=== PATIENT | male | born 1995 | race Caucasian/White ===

== ENCOUNTER 2018-10-24 20:08 | Emergency (ER) | payer MEDICAID, OTHER ==
[~2018-10-24] VITALS: Ht 170.2 cm; Wt 50.0 kg
[~2018-10-24 20:08] MED LIST: AZIT250T12 PO; DIPH-423 PO; PRED50TA PO; RANI-366 PO
[2018-10-24] MEDS ORDERED: methylPREDNISolone sod succ 125mg/2ml vial IV ONE (21:05)
[2018-10-24] MEDS ORDERED: benzonatate 100mg capsule PO ONE (21:05)
[2018-10-24] MEDS ORDERED: diphenhydrAMINE 50 mg/ml inj IM ONE (21:05)
[2018-10-24] MEDS ORDERED: ipratropium/albuterol 3ml nebule NEB ONE (21:05)
[2018-10-24] MEDS ORDERED: normal saline 1000ML IV soln IVB ONE ×2 (21:05→22:35)
[2018-10-24] MEDS ORDERED: ondansetron/PF 4mg/2ml inj IV ONE (21:10)
[2018-10-24] MEDS ORDERED: diphenhydrAMINE 50 mg/ml inj IV ONE (21:20)
[2018-10-24 21:27] LABS: ALANINE AMINOTRANSFERASE 28 U/L (12-78); ALBUMIN 4.7 G/DL (3.4-5.0); ALBUMIN/GLOBULIN RATIO 1.3 (1.1-1.5); ALKALINE PHOSPHATASE 67 IU/L (46-116); ANION GAP 12 (8-16); ASPARTATE AMINO TRANSFERASE 26 U/L (10-37); BLOOD UREA NITROGEN 9 MG/DL (7-18); BUN/CREATININE RATIO 9.1 (5.4-32.0); CALCIUM 9.6 MG/DL (8.5-10.1); CHLORIDE 102 MMOL/L (99-107); CREATININE 0.99 MG/DL (0.60-1.10); GLUCOSE 124 MG/DL (70-104); POTASSIUM 3.7 MMOL/L (3.5-5.1); SODIUM 141 MMOL/L (135-145); TOTAL CARBON DIOXIDE 27.5 MMOL/L (24-32); TOTAL PROTEIN 8.4 G/DL (6.4-8.2); eGFR > 90 ML/MIN
[2018-10-24 21:28] LABS: BASOPHILS # (AUTO) 0.1 X10'3 (0-0.2); BASOPHILS % (AUTO) 0.3 % (0-1); EOSINOPHILS % (AUTO) 0.1 % (0-6); HEMATOCRIT 47.3 % (42.0-52.0); HEMOGLOBIN 16.2 g/dl (14.0-17.9); LYMPHOCYTES % (AUTO) 4.4 % (21-51); MEAN CORPUSCULAR HEMOGLOBIN 30.9 PG (27.0-31.0); MEAN CORPUSCULAR HGB CONC 34.2 g/dL (33.0-36.5); MEAN CORPUSCULAR VOLUME 90.1 FL (78-98); MEAN PLATELET VOLUME 8.5 FL (7.4-10.4); MONOCYTES # (AUTO) 1.6 X10'3 (0-0.9); MONOCYTES % (AUTO) 7.1 % (2-12); NEUTROPHILS # (AUTO) 20.4 X10'3 (1.8-7.7); NEUTROPHILS % (AUTO) 88.1 % (42-75); PLATELET COUNT 379 X10'3 (140-440); RED BLOOD COUNT 5.25 X10'6 (4.70-6.10); RED CELL DISTRIBUTION WIDTH 13.1 % (11.5-14.5); WHITE BLOOD COUNT 23.1 X10'3 (4.5-11.0)
[2018-10-24 21:48] LABS: PLATELET ESTIMATE NORMAL; TOTAL CELLS COUNTED 100
--- NOTE | 2018-10-24 22:17 | NUR ---
patient states that he "feel much better". Lungs Cl, no wheeze, still has a dry cough, gave him some ice water
[2018-10-24] MEDS ORDERED: ALBU6.7H INH (22:37)
[2018-10-24] MEDS ORDERED: ONDA4TAB6 PO (22:37)
[2018-10-24] MEDS ORDERED: PRED20TA PO (22:37)
[2018-10-24 22:48] VITALS: BP 116/56
== END 2018-10-24 23:13 | disposition home or self-care (01) ==
LOC: ER 20:09
DX: J45.909 Unspecified asthma, uncomplicated (principal); E86.0 Dehydration; J06.9 Acute upper respiratory infection, unspecified; R11.2 Nausea with vomiting, unspecified; R19.7 Diarrhea, unspecified; F17.200 Nicotine dependence, unspecified, uncomplicated; Z79.899 Other long term (current) drug therapy
CPT/HCPCS: 36415; 80053; 85025; 94640; 94760; 96361; 96374; 96375; 99283; J1200; J2405; J2930; J7030

== ENCOUNTER 2019-01-21 15:18 | Emergency (ER) | payer MEDICAID, OTHER ==
[~2019-01-21] VITALS: Ht 167.6 cm; Wt 56.4 kg
[~2019-01-21 15:18] MED LIST changes: +ALBU6.7H9 INH; +ONDA4TAB6 PO
[2019-01-21 15:22] VITALS: BP 112/63
[2019-01-21] MEDS ORDERED: PENI500T2 PO (16:21)
== END 2019-01-21 16:29 | disposition home or self-care (01) ==
LOC: ER 15:18
DX: K08.89 Other specified disorders of teeth and supporting structures (principal); J45.909 Unspecified asthma, uncomplicated; Z79.899 Other long term (current) drug therapy
CPT/HCPCS: 99283

== ENCOUNTER 2020-04-21 16:54 | Emergency (ER) | payer MEDICAID ==
[~2020-04-21] VITALS: Ht 170.2 cm; Wt 63.6 kg
[2020-04-21 16:57] VITALS: BP 120/80
[2020-04-21] MEDS ORDERED: IBUP-1984 PO (18:21)
[2020-04-21] MEDS ORDERED: PENI500T2 PO (18:21)
== END 2020-04-21 18:27 | disposition home or self-care (01) ==
LOC: ER 16:54
DX: K04.7 Periapical abscess without sinus (principal); J45.909 Unspecified asthma, uncomplicated; Z79.2 Long term (current) use of antibiotics; Z79.899 Other long term (current) drug therapy
CPT/HCPCS: 99283

== ENCOUNTER 2021-05-20 22:41 | Emergency (ER) | payer MEDICAID, OTHER ==
[~2021-05-20] VITALS: Ht 170.2 cm; Wt 65.8 kg
[2021-05-20] MEDS ORDERED: iohexol 300mg/ml 100ml inj. ONE (23:03)
--- NOTE | 2021-05-20 23:15 | NUR ---
This RN with patient in CT for rodriguez scans. patient complains of elft facial pain and FUENTES 8/10. denies any other pain
[2021-05-20 23:44] LABS: BASOPHILS % (AUTO) 0.3 % (0-1); EOSINOPHILS # (AUTO) 0.1 X10'3 (0-0.9); EOSINOPHILS % (AUTO) 1.1 % (0-6); HEMATOCRIT 45.3 % (42.0-52.0); HEMOGLOBIN 15.2 g/dl (14.0-17.9); LYMPHOCYTES # (AUTO) 2.4 X10'3 (1.1-4.8); LYMPHOCYTES % (AUTO) 19.8 % (21-51); MEAN CORPUSCULAR HEMOGLOBIN 30.6 PG (27.0-31.0); MEAN CORPUSCULAR HGB CONC 33.6 g/dL (33.0-36.5); MEAN CORPUSCULAR VOLUME 90.8 FL (78-98); MONOCYTES # (AUTO) 0.9 X10'3 (0-0.9); MONOCYTES % (AUTO) 7.8 % (2-12); NEUTROPHILS # (AUTO) 8.7 X10'3 (1.8-7.7); PLATELET COUNT 345 X10'3 (140-440); RED BLOOD COUNT 4.99 X10'6 (4.70-6.10); WHITE BLOOD COUNT 12.2 X10'3 (4.5-11.0)
[2021-05-20 23:54] LABS: ALBUMIN 3.4 G/DL (3.4-5.0); ANION GAP 10 (8-16); BLOOD UREA NITROGEN 7 MG/DL (7-18); BUN/CREATININE RATIO 9.7 (5.4-32.0); CALCIUM 8.2 MG/DL (8.5-10.1); CHLORIDE 102 MMOL/L (99-107); CREATININE 0.72 MG/DL (0.60-1.10); GLUCOSE 96 MG/DL (70-104); POTASSIUM 3.6 MMOL/L (3.5-5.1); SODIUM 139 MMOL/L (135-145); eGFR > 90 ML/MIN
[2021-05-20 23:57] LABS: APTT 28 SECONDS (22-32)
[2021-05-21] MEDS: CefTRIAXone/D5W-Rocephin 1gm 50 ML IV ONE (00:01)
--- NOTE | 2021-05-21 00:06 | NUR ---
PATIENT IS RESTING COMFORTABLY. THIS RN NOTES THE PATIENT ARRIVED TO ED WITHOUT C-COLLAR ON AND THIS RN PLACED ONE IMMEDIATELY PER MD ORDER.
[2021-05-21] MEDS: ondansetron/PF 4mg/2ml inj IV ONE (00:27)
[2021-05-21] MEDS: morphine 4 MG/ML inj SYRINge IV ONE (00:27)
--- NOTE | 2021-05-21 00:30 | NUR ---
MD coello to remove c-collar
[2021-05-21 00:51] VITALS: BP 105/58
--- NOTE | 2021-05-21 01:07 | NUR ---
report to medics. report to omero at [facility] - patient left pwd krishnamurthy aox2
== END 2021-05-21 01:09 | disposition short-term general hospital (02) ==
LOC: ER 22:41
DX: S06.5X9A Traumatic subdural hemorrhage with loss of consciousness of unspecified duration, initial encounter (principal); S02.31XA Fracture of orbital floor, right side, initial encounter for closed fracture; S02.19XA Other fracture of base of skull, initial encounter for closed fracture; S05.12XA Contusion of eyeball and orbital tissues, left eye, initial encounter; J45.909 Unspecified asthma, uncomplicated; G93.89 Other specified disorders of brain; Z20.822 Contact with and (suspected) exposure to COVID-19; Z87.01 Personal history of pneumonia (recurrent); Z72.89 Other problems related to lifestyle; Z79.899 Other long term (current) drug therapy; Z79.2 Long term (current) use of antibiotics; V89.2XXA Person injured in unspecified motor-vehicle accident, traffic, initial encounter; Y93.89 Activity, other specified; Y92.89 Other specified places as the place of occurrence of the external cause; Y99.8 Other external cause status
CPT/HCPCS: 36415; 70450; 70486; 71260; 72125; 72128; 72131; 74177; 80048; 85025; 85610; 85730; 87635; 96374; 96375; 99285; C9803; J0696; J2270; J2405; Q9967

== ENCOUNTER 2024-09-11 08:27 | Emergency (ER) | payer MEDICAID, OTHER ==
[~2024-09-11] VITALS: Ht 170.2 cm; Wt 54.5 kg
[~2024-09-11 08:27] MED LIST changes: +ALBU6.7H14 INH; -ALBU6.7H9 INH
[2024-09-11 08:39] VITALS: BP 115/68; PULSE 80; RESP 18; TEMP 97.8; O2SAT 98
[2024-09-11] MEDS ORDERED: SULF1TAB49 PO (09:36)
[2024-09-11] MEDS: sulfamethoxazole/trimethoprim DS (800/160mg) tablet PO ONE (10:01)
== END 2024-09-11 10:10 | disposition home or self-care (01) ==
LOC: ER 08:27
DX: L02.423 Furuncle of right upper limb (principal); L03.011 Cellulitis of right finger; J45.909 Unspecified asthma, uncomplicated; F17.200 Nicotine dependence, unspecified, uncomplicated; F41.9 Anxiety disorder, unspecified; F32.A Depression, unspecified; Z79.899 Other long term (current) drug therapy
CPT/HCPCS: 10060; 99283

== ENCOUNTER 2024-11-22 14:07 | Emergency (ER) | payer MEDICAID ==
[~2024-11-22] VITALS: Ht 170.2 cm; Wt 59.1 kg
[2024-11-22 14:09] VITALS: BP 127/89; PULSE 77; O2SAT 99
[2024-11-22] MEDS ORDERED: IBUP-1986 PO (15:35)
--- NOTE | 2024-11-22 15:35 | Physician Documentation ---
History of Present Illness ~ Chief Complaint: Facial Pain Stated Complaint: SINUS PAIN Time Seen by MD: 15:08 Primary Medical Doctor: None HPI This is a 29-year-old male who presents with six months of right-sided maxillary and temporal pain, patient reports no significant change recently though pain has been progressively getting worse. Patient reports no fever, nasal discharg e, congestion, or sinus pressure. Patient reports that he had a traumatic injury to the area approximately three years prior and has been having issues with the area ever since. Patient reports no other acute symptoms or concerns. Tetanus Within 5 Years: Yes Medication Reconciliation Allergies: Coded Allergies: No Known Allergies (Unverified , 03/30/17) Scheduled Albuterol Sulfate (Proventil Hfa), 2 PUFFS INH Q6H Azithromycin (Azithromycin), 2 TAB PO DAILY Diphenhydramine Hcl (Benadryl), 25 MG PO TID Ibuprofen (Ibuprofen), 1 TAB PO Q8H Ondansetron Hcl (Zofran), 1 TAB PO Q6H Prednisone (Prednisone), 1 TAB PO DAILY Ranitidine Hcl (Zantac), 150 MG PO DAILY Past Medical History Past Medical History: Asthma, Pneumonia, Anxiety, Depression Past Surgical History: no surgical history Alcohol Use: Occasionally Drug Use: none Lives In: Home Review of Systems ROS Right-sided facial pain as stated above in the HPI, otherwise all systems are reviewed and negative. Physical Exam Vital Signs: Temperature: 97.9, Source: Temporal, Heart Rate: 77, Respiratory Rate: 18, BP: 127/89, Pulse Oximetry: 99, Weight: 59.090 Oxygen Flow Rate: 0 Physical Exam VITALS: Reviewed and as above. GENERAL: Alert, nontoxic appearing, no apparent distress. HEENT: Mild temporal and TMJ tenderness, PERRLA, EOMI, no facial swelling, no facial ecchymosis, no facial erythema, nasal turbinates non swollen and nonerythematous, no nasal discharge, no sinus pain with percussion or palpation, no trismus, no dental erythema or swelling. RESPIRATORY: No increased work of breathing, no respiratory distress, speaking in full clear sentences Progress Results/Orders Results/Orders Completed Orders - WILL TURNER [employer] Ketorolac Trometh 15mg/Ml Vial (Toradol (11/22/24 15:40) Acetaminophen 325mg Tablet (Tylenol Tabl (11/22/24 15:40) Medications Received in ER Medications (Trade) Dose Ordered Sig/Clare Route PRN Reason Start Time Stop Time Status Last Admin Dose Admin (Toradol injection) 15 mg ONCE ONCE IM 11/22/24 15:40 11/22/24 15:41 DC 11/22/24 15:53 15 MG (Tylenol tablet) 650 mg ONCE ONCE PO 11/22/24 15:40 11/22/24 15:41 DC 11/22/24 15:52 650 MG Vital Signs 11/22/24 11/22/24 11/22/24 14:09 15:53 16:06 Temp 97.9 97.9 Pulse 77 Resp 18 16 B/P (MAP) 127/89 Pulse Ox 99 O2 Flow Rate 0 Medical Decision Making Findings This is a 29-year-old male presented with six months of right-sided facial pain, patient reported that it has been progressively worsening however there has been no recent acute changes in pain. Patient's physical exam was benign with no injuries, focal tenderness, or swelling. Sinusitis considered however patient has no sinus pain with percussion or palpation, hand reported no sinus pressure or fever. Patient does have history of trauma to the area however reported no recent trauma, therefore imaging not indicated. Patient is otherwise well- appearing, given pain is chronic and not significantly changed patient has been advised he must follow up with primary care provider for further workup. Patient is hemodynamically stable and appropriate for outpatient follow up. Patient provided return to care precautions. Differential Dx:Considerations: Include: Abrasion, Contusion, Closed head injury, Foreign body, Fracture, facial, Laceration, Other (Trigeminal neuralgia, temporal arteritis, sinusitis, cellulitis) Departure Disposition: 01 HOME / SELF CARE / HOMELESS Impression: Primary Impression: Facial pain Condition: Improved Discharge Instructions: Chronic Pain, Adult Additional Instructions: You will need to follow up with a primary care provider for further evaluation of your chronic facial pain. Please follow up with your primary care provider or with the [facility] in the next few days. Please return to the emergency department for any new or worsening concerning symptoms. Please take the ibuprofen as prescribed, you may add Tylenol [id number] as needed for breakthrough pain as directed by the [id number] packaging. Do not take ibuprofen for the next 12 hours as you received a Toradol injection which replaces this medication, please take ibuprofen with food to avoid stomach upset. Referrals: NO PRIMARY CARE PROVIDER (PCP) Prescriptions Ibuprofen (Ibuprofen) 800 Mg Tablet 1 TAB PO Q8H for pain for 10 Days, #30 TAB 0 Refills Prov: WILL TURNER 11/22/24 Education Educated: Patient Educated regarding: diagnosis, treatment, prognosis, need for follow up Signature Scribe Signature: No scribe Attestation: The note accurately reflects work and decisions made by me.IVAN Deleon 11/22/24 20:24 WILL TURNER Nov 22, 2024 15:35
[2024-11-22 15:53] VITALS: RESP 16
[2024-11-22] MEDS: ketorolac trometh 15mg/ml vial 15 MG/ML ML IM ONE (15:53)
[2024-11-22 16:06] VITALS: TEMP 97.9
== END 2024-11-22 16:07 | disposition home or self-care (01) ==
LOC: ER 14:07
DX: R51.9 Headache, unspecified (principal); J45.909 Unspecified asthma, uncomplicated; F32.A Depression, unspecified; F41.9 Anxiety disorder, unspecified
CPT/HCPCS: 96372; 99283; J1885